=== PATIENT | female | born 1950 | race Caucasian/White ===

== ENCOUNTER → 2022-04-07 08:47 | Outpatient (CLI) | payer MEDICARE, SELFPAY ==
--- NOTE | ~2022-04-07 | CT_ITS ---
EXAMINATION: CT soft tissue neck w con DATE: 04/07/2022 09:26 INDICATION: Throat pain. TECHNIQUE: Computed tomography (CT) of the neck was performed with 75 mL Omnipaque-350 intravenous co ntrast. Automated exposure control and iterative reconstruction technique were employed. The dose-benji gth product was 389.68 mGy-cm. COMPARISON: None FINDINGS: There are likely changes of ocular lens replacement surgeries. There is plaque in the proxi mal internal carotid arteries with 0% stenosis relative to normal distal artery lumen diameters. Ther e are no pathologically enlarged lymph nodes. The pharynx and larynx are normal. There is severe cerv ical spondylosis. The paranasal sinuses are clear. The mastoid air cells are normal. IMPRESSION: 1. No specific etiology for the patient's symptoms. Reviewed, dictated and finalized at location A. [employer] REPRESENTATIVE
[2022-04-07 09:14] LABS: Estimated Glomerular Filt Rate 54
== END ==
PROVIDERS: PCP Internal Medicine
DX: R07.0 Pain in throat (principal)
CPT/HCPCS: 70491; Q9967

== ENCOUNTER → 2022-11-06 13:18 | Outpatient (CLI) | payer MEDICARE, SELFPAY ==
--- NOTE | ~2022-11-06 | DEXA_ITS ---
Bone Density Report Name: CARMITA MARRUFO Age: 72 Sex: Female Ethnicity: White Date of : 1950 Indication: postmenopausal; screening for osteoporosis; height loss; history of glucocorticoids; prior fracture; hysterectomy; rheumatoid arthritis; Referring Provider: ALLIE, ALDO Valladares Study: Bone densitometry was performed. Exam Date: November 06, 2022 Accession number: [id number] Bone Density: Region BMD T-score Z-score Classification AP Spine (L1-L4) 0.833 -1.9 0.4 Osteopenia Femoral Neck (Left) 0.623 -2.0 0.0 Osteopenia Total Hip (Left) 0.842 -0.8 0.9 Normal Femoral Neck (Right) 0.637 -1.9 0.1 Osteopenia Total Hip (Right) 0.826 -1.0 0.8 Normal Total Hip Mean 0.834 -0.9 0.9 Normal World Health Organization criteria for BMD impression classify patients as: Normal (T-score at or above -1.0), Osteopenia (T-score between -1.0 and -2.5), or Osteoporosis (T-score at or below -2.5). 10-year Fracture Risk(1): Major Osteoporotic Fracture 35% Hip Fracture 10% Reported Risk Factors: [place] (), Neck BMD=0.623, BMI=35.1, previous fracture, glucocorticoids, rheumatoid arthritis (1) FRAX(R) Version 3.08. Fracture probability calculated for an untreated patient. Fracture probability may be lower if the patient has received treatment. Clinical Information Provided by Patient: Has had a low trauma fracture Has taken Glucocorticoids Has rheumatoid arthritis Has used the following medications: Vitamin D, Calcium, MTV Has the following medical conditions: Hysterectomy Patient maximum height was 66.0 Menopause Age: 35 No regular weight bearing exercise Drinks caffeinated beverages Onset of menses at age 12 Number of children 2 Impression: The patient has low bone mass, based on the Left Femoral Neck T-score. The patient has an estimated ten-year risk of hip fracture of 10% and an estimated ten-year risk of major fracture of 35%, based on the WHO FRAX algorithm. The patient has risk factors, including: previous fracture, history of glucocorticoid therapy. Discussion: BONE DENSITY IS LOW AT ONE OR MORE SKELETAL SITES. THE PATIENT'S BMD AND CLINICAL RISK FACTORS CONTRIBUTE TO THIS PATIENT'S HIGH RISK OF FRACTURE. This patient's lowest T-score is low at one or more skeletal sites. It meets the World Health Organization's (WHO) criteria for ?low bone mass? (T-score between -1.0 and -2.5). The patient's 10-year risk of hip fracture and 10 year risk of a major osteoporotic fracture as calculated by FRAX exceeds the threshold where pharmacological therapy is recommended by the National Osteoporosis Foundation (NOF). However, all treatment decisions require clinical judgment and consideration of individual patient factors, including patient preferences, comorbidities, previous drug use, risk factors not
== END ==
PROVIDERS: PCP Internal Medicine; Visit Provider Internal Medicine
DX: Z78.0 Asymptomatic menopausal state (principal); M85.89 Other specified disorders of bone density and structure, multiple sites
CPT/HCPCS: 77080